=== PATIENT | female | born 1995 | race American Indian/Alaskan Native ===

== ENCOUNTER 2021-11-01 20:41 | Emergency (ER) | payer SELFPAY ==
[2021-11-01 20:45] VITALS: BP 118/72
--- NOTE | 2021-11-01 21:08 | Emergency Department Report ---
<HELENA AMAYA - Last Filed: 11/01/21 21:56> ED Psych HPI - General Chief Complaint: Psych Stated Complaint: PSYCH EVAL Time Seen by Provider: 11/01/21 21:05 Source: patient, EMS Mode of arrival: Stretcher Limitations: No Limitations - History of Present Illness Initial Comments: Chief complaint: "I just did not feel safe." HPI: 76-year-old female with history of bipolar disorder who feels as if someone is out to kill her. She was renting a room in [place]. She tried to give as much money she can. She overheard people speaking of killing her. She has not been compliant with her medications. He endorses depressed mood. Denies suicidal homicidal ideation. She denies physical complaints. MD Complaint: suicidal ideation, feels depressed, other (Paranoia) Associated Psychiatric Symptoms: depression, racing thoughts, other (Paranoia) Quality: constant Improves With: none Worsens With: none Context: not taking psychiatric, significant life stressor Associated Symptoms: denies other symptoms Treatments Prior to Arrival: none, other (EMS transportation) - Related Data Allergies Allergy/AdvReac Type Severity Reaction Status Date / Time No Known Allergies Allergy Unverified 11/01/21 21:24 ED Review of Systems Comment: All other systems reviewed and negative Constitutional: denies: chills, fever, malaise ENT: denies: epistaxis Respiratory: denies: cough Cardiovascular: denies: chest pain Psychiatric: anxiety, depression. denies: auditory hallucinations, visual hallucinations, homicidal thoughts, suicidal thoughts ED Past Medical Hx - Past Medical History Previous Medical History?: Yes Hx Psychiatric Treatment: Yes (Bipolar disorder) Additional medical history: Bipolar disorder - Surgical History Past Surgical History?: No - Social History Smoking Status: Never Smoker Substance Use Type: None ED Physical Exam - General Limitations: No Limitations General appearance: alert, in no apparent distress - Head Head exam: Present: atraumatic, normocephalic - Eye Eye exam: Present: normal appearance - ENT ENT exam: Present: mucous membranes moist - Neck Neck exam: Present: normal inspection, full ROM - Respiratory Respiratory exam: Present: normal lung sounds bilaterally. Absent: respiratory distress, wheezes, rales, rhonchi - Cardiovascular Cardiovascular Exam: Present: regular rate, normal rhythm, normal heart sounds. Absent: systolic murmur, diastolic murmur, rubs, gallop - GI/Abdominal GI/Abdominal exam: Present: soft, normal bowel sounds. Absent: distended, tenderness, guarding, rebound - Extremities Exam Extremities exam: Present: normal inspection - Neurological Exam Neurological exam: Present: alert, oriented X3 - Psychiatric Psychiatric exam: Present: normal affect, depressed. Absent: flat affect, manic, homicidal ideation, suicidal ideation - Skin Skin exam: Present: warm, dry, intact, normal color. Absent: rash ED Medical Decision Making - Lab Data Result diagrams: 11/01/21 21:15 11/01/21 21:15 Laboratory Results - last 24 hr 11/01/21 11/01/21 11/01/21 21:14 21:15 21:15 WBC 13.2 H RBC 5.20 H Hgb 11.3 Hct 36.8 MCV 71 L MCH 22 L MCHC 31 RDW 18.7 H Plt Count 293 Lymph % (Auto) 14.5 Prairie % (Auto) 3.4 Eos % (Auto) 0.0 Baso % (Auto) 0.5 Lymph # (Auto) 1.9 Prairie # (Auto) 0.4 Eos # (Auto) 0.0 Baso # (Auto) 0.1 Seg Neutrophils % 81.6 H Seg Neutrophils # 10.8 H Sodium 137 Potassium 3.5 L Chloride 101.7 Carbon Dioxide 21 L Anion Gap 18 BUN 7 Creatinine 1.0 Estimated GFR > 60 BUN/Creatinine Ratio 7 Glucose 72 Calcium 9.7 Total Bilirubin 0.40 AST 35 ALT 49 Alkaline Phosphatase 51 Total Protein 7.9 Albumin 4.9 Albumin/Globulin Ratio 1.6 HCG, Qual Salicylates < 0.3 L Acetaminophen Valproic Acid < 2.8 L Plasma/Serum Alcohol 11/01/21 11/01/21 11/01/21 21:15 21:15 21:15 WBC RBC Hgb Hct MCV MCH MCHC RDW Plt Count Lymph % (Auto) Prairie % (Auto) Eos % (Auto) Baso % (Auto) Lymph # (Auto) [place] # (Auto) Eos # (Auto) Baso # (Auto) Seg Neutrophils % Seg Neutrophils # Sodium Potassium Chloride Carbon Dioxide Anion Gap BUN Creatinine Estimated GFR BUN/Creatinine Ratio Glucose Calcium Total Bilirubin AST ALT Alkaline Phosphatase Total Protein Albumin Albumin/Globulin Ratio HCG, Qual Negative Salicylates Acetaminophen 5.0 L Valproic Acid Plasma/Serum Alcohol < 0.01 - Medical Decision Making This is a 26 -year-old female with bipolar affective disorder who presents with paranoia. She states that she was in an unsafe environment. She is insightful. She is cooperative. She is medically clear for psychiatric care. Mental health newspaper photojournalist informing the patient states that she is having auditory loose Nations. Has health newspaper photojournalist recommended 1013 involuntary hold. I have completed 1013 form. I have ordered 13 help. ED Disposition Clinical Impression: Paranoia Disposition: HOME / SELF CARE / HOMELESS Condition: Stable Additional Instructions: Professional and Agency Contacts To help [facility](11/06) [place] Crisis Line: Suicide Prevention Line: Crisis Text Line: Text START to 745343 Emergency: 911 Outpatient COMMUNITY Behavioral Health Resources: [facility]: [facility] [address] [place], [place] [address] [facility] [address] [place] [address] [facility] - [address] [place] [address] Sunday thru Sunday - 8am - 5pm [facility] Address: [address] [place] [address] [facility]: [facility] Address: [address] [place] [address] Sunday thru Sunday- 7am-2pm [facility] Address: [address] [place] [address] Sunday thru Sunday: 8:30AM-5PM In case of an emergency, please contact the following numbers: [place] Crisis and Access Line: Number: Crisis Text Line: (Text START) Number: 340840 Suicide Prevention Line: Number: Emergency Number: 911 SUBSTANCE ABUSE PROGRAMS: [facility]: Location: [place], [place] [employer] [facility] Address: [address] [place] [address] [facility]: Address: [address] [place] [address] [facility]: Address: [address] [place] [address] [facility]: Address: [address] [place] [address] [facility] Address: [address] [place] [address]. Please contact above numbers to attempt placement into free based program. Medicaid Programs: [facility]: Address: [address] [place] [address] [facility]: Address: [address] [place] [address] Prescriptions: Quetiapine Fumarate [SEROquel] 50 mg PO QHS 30 Days #[address] [DepaKOTE DR] 125 mg PO BID 30 Days #60 tablet QUEtiapine [SEROquel] 25 mg PO BID 30 Days #60 tablet Referrals: PRIMARY CARE, [Primary Care Provider] - 3-5 Days <ODETTE AMAYA - Last Filed: 11/02/21 11:53> ED Review of Systems ROS: Stated complaint: PSYCH EVAL Other details as noted in HPI ED Course Vital Signs 11/01/21 11/02/21 20:41 05:06 Temperature 98.0 F Pulse Rate 108 H Respiratory 18 18 Rate Blood Pressure 118/72 [Left] O2 Sat by Pulse 99 99 Oximetry - Reevaluation(s) Reevaluation #1: 11/02/21 11:51 Psychiatric Consult Note Patient Name: JONH ROD Date of : 89 Patient Status: Emergency Emergency Provider: HELENA AMAYA Date: 11/02/21 11:16 Initialization Date: 11/02/21 11:16 History of Present Illness - Reason for Consult Consult date: 11/02/21 Reason for consult: mental health evaluation - History of Present Psychiatric Illness ED Note: 26-year-old female with history of bipolar disorder who feels as if someone is out to kill her. She was renting a room in [place]. She tried to give as much money she can. She overheard people speaking of killing her. She has not been compliant with her medications. He endorses depressed mood. Denies suicidal homicidal ideation. She denies physical complaints. The patient is a 26 year old female with bipolar disorder. The patient is alert and oriented x3. The patient reports that she has been of medications for about 2 months. She reports that the ismael she is ling with is saying she is going to kill her. She denies any current suicidal/homicidal ideation and denies hallucinations. PAST PSYCHIATRIC HISTORY Diagnoses: Bipolar Suicide attempts or Self-harm behavior: Yes Prior psychiatric hospitalizations: Yes Substance Abuse history: Denies Previous psychiatric medications tried: Zoloft, Seroquel, Trazodone, Burpar, Gabapentin Outpatient treatment:Unknown SOCIAL HISTORY Marital Status: Single Living Arrangements: Lives alone Employment Status: unemployed Access to guns/weapons: Denied Education: 12th grade History of Abuse: Denied Legal History: None reported REVIEW OF SYSTEMS Constitutional: Negative for weight loss ENT: Negative for stridor Respiratory: Negative for cough or hemoptysis All other systems reviewed and are negative MENTAL STATUS EXAMINATION General Appearance and Behavior: Age appropriate, dressed appropriately, calm and uncooperative Cooperation: cooperative Psychomotor Behavior: psychomotor normal Mood: "ok" Affect and affective range: congruent with stated mood Thought Process: goal oriented Thought Content: Not suicidal Speech: Normal volume, Regular rate and rhythm, Intellectual Functioning: Average Suicidal Ideation: Denies Homicidal Ideation: Denies Hallucinations: auditory/visual intermittent Delusions: None elicited Impulse Control: Unimpaired Insight and Judgment: limited insight and fair judgment, Memory: Normal Attention: divided Orientation: Alert, oriented Assessment and Plan (1) Hx Schizophrenia (2) Treatment plan Continue previous prescribed meds Risks, benefits and alternatives of medications discussed with the patient, tamy garcía answered and consent obtained from patient. PSYCHOTHERAPY: Supportive psychotherapy provided MEDICAL: Per primary team DELIRIUM PRECAUTIONS: Please re-orient patient frequently, keep lights on during the day, and minimize benzodiazepines and opiates as these medications could worsen patient's confusion. RIB MATCHER AND FITTER: Per medical team DISPOSITION: Do not recommend acute inpatient psychiatric hospitalization. Maintenance Aide will provide patient with psychiatric out patient resources Will sign off. Thank you for the consult. Please contact with any questions and/or concerns. Case staffed with Dr. Garcia ED Medical Decision Making - Lab Data Result diagrams: 11/01/21 21:15 11/01/21 21:15 - Medical Decision Making Patient still having some thoughts that people are out to harm her. She was see n by mental health assessment team and was deemed safe for discharge. She is been restarted on her medications. Patient had a 1013 discontinued and rescinded. Critical care attestation.: If time is entered above; I have spent that time in minutes in the direct care of this critically ill patient, excluding procedure time. ED Disposition Is pt being admited?: No Does the pt Need Aspirin: No Time of Disposition: 11:53
[2021-11-01 21:28] LABS: Basophils # (Auto) 0.1 K/mm3 (0.0-0.1); Basophils % (Auto) 0.5 % (0.0-1.8); Hematocrit 36.8 % (30.3-42.9); Hemoglobin 11.3 gm/dl (10.1-14.3); Lymphocytes # (Auto) 1.9 K/mm3 (1.2-5.4); Lymphocytes % (Auto) 14.5 % (13.4-35.0); Mean Corpuscular HGB Conc 31 % (30-34); Mean Corpuscular Volume 71 fl (79-97); Monocytes # (Auto) 0.4 K/mm3 (0.0-0.8); Monocytes % (Auto) 3.4 % (0.0-7.3); Platelet Count 293 K/mm3 (140-440); Red Cell Distribution Width 18.7 % (13.2-15.2)
[2021-11-01 21:51] LABS: Alanine Aminotransferase 49 units/L (7-56); Albumin 4.9 g/dL (3.9-5); BUN/Creatinine Ratio 7; Blood Urea Nitrogen 7 mg/dL (7-17); Calcium 9.7 mg/dL (8.4-10.2); Hemolysis Index 5
[2021-11-01 22:34] LABS: Bacteria,Urine 2+ /HPF (Negative); Bilirubin,Urine NEG (Negative); Blood,Urine NEG (Negative); Color,Urine Straw (Yellow); Mucus,Urine FEW /HPF; Protein,Urine <15 mg/dL mg/dL (Negative); Urobilinogen,Urine < 2.0 mg/dL (<2.0)
[2021-11-01 22:39] LABS: Amphetamine Screen,Urine PRESUMPTIVE NEGATIVE; Benzodiazepines Screen,Urine PRESUMPTIVE NEGATIVE; Cannabinoid Screen,Urine PRESUMPTIVE NEGATIVE; Cocaine Screen,Urine PRESUMPTIVE POSITIVE; Methadone Screen,Urine PRESUMPTIVE NEGATIVE; Opiate Screen,Urine PRESUMPTIVE NEGATIVE
--- NOTE | 2021-11-02 11:20 | Consultation ---
History of Present Illness - Reason for Consult Consult date: 11/02/21 Reason for consult: mental health evaluation - History of Present Psychiatric Illness ED Note: 26-year-old female with history of bipolar disorder who feels as if someone is out to kill her. She was renting a room in [place]. She tried to give as much money she can. She overheard people speaking of killing her. She has not been compliant with her medications. He endorses depressed mood. Denies suicidal homicidal ideation. She denies physical complaints. The patient is a 26 year old female with bipolar disorder. The patient is alert and oriented x3. The patient reports that she has been of medications for about 2 months. She reports that the ismael she is ling with is saying she is going to kill her. She denies any current suicidal/homicidal ideation and denies hallucinations. PAST PSYCHIATRIC HISTORY Diagnoses: Bipolar Suicide attempts or Self-harm behavior: Yes Prior psychiatric hospitalizations: Yes Substance Abuse history: Denies Previous psychiatric medications tried: Zoloft, Seroquel, Trazodone, Burpar, Gabapentin Outpatient treatment:Unknown SOCIAL HISTORY Marital Status: Single Living Arrangements: Lives alone Employment Status: unemployed Access to guns/weapons: Denied Education: 12th grade History of Abuse: Denied Legal History: None reported REVIEW OF SYSTEMS Constitutional: Negative for weight loss ENT: Negative for stridor Respiratory: Negative for cough or hemoptysis All other systems reviewed and are negative MENTAL STATUS EXAMINATION General Appearance and Behavior: Age appropriate, dressed appropriately, calm and uncooperative Cooperation: cooperative Psychomotor Behavior: psychomotor normal Mood: "ok" Affect and affective range: congruent with stated mood Thought Process: goal oriented Thought Content: Not suicidal Speech: Normal volume, Regular rate and rhythm, Intellectual Functioning: Average Suicidal Ideation: Denies Homicidal Ideation: Denies Hallucinations: auditory/visual intermittent Delusions: None elicited Impulse Control: Unimpaired Insight and Judgment: limited insight and fair judgment, Memory: Normal Attention: divided Orientation: Alert, oriented Assessment and Plan (1) Hx Schizophrenia (2) Treatment plan Continue previous prescribed meds Risks, benefits and alternatives of medications discussed with the patient, questions answered and consent obtained from patient. PSYCHOTHERAPY: Supportive psychotherapy provided MEDICAL: Per primary team DELIRIUM PRECAUTIONS: Please re-orient patient frequently, keep lights on during the day, and minimize benzodiazepines and opiates as these medications could worsen patient's confusion. ROUSTABOUT HEAD: Per medical team DISPOSITION: Do not recommend acute inpatient psychiatric hospitalization. Record Label Intern will provide patient with psychiatric out patient resources Will sign off. Thank you for the consult. Please contact with any questions and/or concerns. Case staffed with Dr. Garcia Medications and Allergies Medications and Allergies Allergies Allergy/AdvReac Type Severity Reaction Status Date / Time No Known Allergies Allergy Unverified 11/01/21 21:24 Home Medications Medication Instructions Recorded Confirmed Last Taken Type Divalproex Dr [DepaKOTE DR] 125 mg PO BID 30 Days #60 tablet 11/02/21 Unknown Rx QUEtiapine [SEROquel] 25 mg PO BID 30 Days #60 tablet 11/02/21 Unknown Rx Quetiapine Fumarate [SEROquel] 50 mg PO QHS 30 Days #30 tablet 11/02/21 Unknown Rx Mental Status Exam - Vital signs Last Vital Signs Temp 98.0 F 11/01/21 20:41 Pulse 108 H 11/01/21 20:41 Resp 18 11/02/21 05:06 BP 118/72 11/01/21 20:41 Pulse Ox 99 11/02/21 05:06 Results Result Diagrams: 11/01/21 21:15 11/01/21 21:15 Abnormal lab results 11/01/21 11/01/21 11/01/21 Range/Units 21:14 21:15 21:15 WBC 13.2 H (4.5-11.0) K/mm3 RBC 5.20 H (3.65-5.03) M/mm3 MCV 71 L (79-97) fl MCH 22 L (28-32) pg RDW 18.7 H (13.2-15.2) % Seg Neutrophils % 81.6 H (40.0-70.0) % Seg Neutrophils # 10.8 H (1.8-7.7) K/mm3 Potassium 3.5 L (3.6-5.0) mmol/L Carbon Dioxide 21 L (22-30) mmol/L Urine WBC (Auto) (0.0-6.0) /HPF Salicylates < 0.3 L (2.8-20.0) mg/dL Acetaminophen (10.0-30.0) ug/mL Valproic Acid < 2.8 L (50-100) ug/mL 11/01/21 11/01/21 Range/Units 21:15 22:10 WBC (4.5-11.0) K/mm3 RBC (3.65-5.03) M/mm3 MCV (79-97) fl MCH (28-32) pg RDW (13.2-15.2) % Seg Neutrophils % (40.0-70.0) % Seg Neutrophils # (1.8-7.7) K/mm3 Potassium (3.6-5.0) mmol/L Carbon Dioxide (22-30) mmol/L Urine WBC (Auto) 33.0 H (0.0-6.0) /HPF Salicylates (2.8-20.0) mg/dL Acetaminophen 5.0 L (10.0-30.0) ug/mL Valproic Acid (50-100) ug/mL All other labs normal.
== END 2021-11-02 12:46 | disposition home or self-care (01) ==
LOC: ED 20:41
DX: F20.9 Schizophrenia, unspecified (principal); F22 Delusional disorders; Z20.822 Contact with and (suspected) exposure to COVID-19
CPT/HCPCS: 36415; 80053; 80164; 80307; 81001; 84703; 85025; 87076; 87086; 87186; 99284; U0003; 80320; G0480